=== PATIENT | female | born 1945 | race Caucasian/White ===

== ENCOUNTER 2025-01-17 18:50 | Emergency (ER) | payer OTHER ==
[2025-01-17] MEDS ORDERED: NA CHLORIDE 0.9% 1,000 ML ONE (19:13)
--- NOTE | 2025-01-17 19:58 | RAD REPORT ---
EXAMINATION: US bilateral LOWER EXTREMITY VENOUS DOPPLER CLINICAL INDICATION: Leg pain TECHNIQUE: Sonographic evaluation of the veins of the lower extremity bilaterally formed.Grayscale, c olor and spectral analysis performed on all vessels COMPARISON: No prior exam. FINDINGS: The common femoral, superficial femoral, greater saphenous, popliteal and posterior tibial veins bila terally are compressible and demonstrate augmentation. Doppler demonstrates good flow. IMPRESSION: No evidence of deep venous thrombosis involving either lower extremity
--- NOTE | 2025-01-17 20:00 | RAD REPORT ---
Procedure: Chest Single View HISTORY: Cough COMPARISON: 2023 FINDINGS: The lungs appear clear of acute infiltrate. Right lung calcified granulomas. No significant pleural effusion noted. The heart is normal size. IMPRESSION: No acute abnormality is displayed.
--- NOTE | 2025-01-17 20:01 | RAD REPORT ---
Exam:Foot Left 3 View CLINICAL HISTORY: Left foot pain FINDINGS: No fracture or dislocation seen Moderate narrowing first MTP joint with subchondral sclerosis and osteophytes. Lateral subluxation fi rst proximal phalanx. Mild arthritic changes involve DIP and PIP joints. Moderate plantar calcaneal spur
[2025-01-17 20:22] LABS: Absolute Basophils 0.1 K/uL (0-0.5); Absolute Eosinophils 0.5 K/uL (0-0.5); Absolute Lymphocytes (CBC) 2.4 K/uL (0.7-4.9); Absolute Monocytes 0.6 K/uL (0.1-1.3); Absolute Neutrophil 3.8 K/uL (1.8-8.0); Basophils % 0.7 % (0-1.3); Eosinophils % 7.2 % (0-4.4); Hematocrit 37.8 % (36.0-45.0); Hemoglobin 12.7 g/dL (12.0-15.0); Lymphocytes % 32.2 % (15.3-44.8); MCH 27.8 pg (27.0-35.0); MCHC 33.6 g/dL (32.0-36.0); MCV 82.5 fL (80-100); MPV 8.2 fL (7.6-11.3); Monocytes % 8.1 % (3.3-12.3); Neutrophils % 51.8 % (41.7-73.7); Nucleated Red Blood Cells % 0.2 % (0-0); Platelets 194 thou/uL (152-406); RBC Red Blood Cell Count 4.58 M/uL (3.86-4.86); Red Cell Distribution Width 14.2 % (12.1-15.2)
[2025-01-17] MEDS ORDERED: SMZ./TMP. 800/160 MG TABLET ONE (20:37)
[2025-01-17] MEDS ORDERED: FLUCONAZOLE 100 MG TAB ONE (20:37)
[2025-01-17] MEDS ORDERED: MUPIROCIN 2% OINT 22GM TUBE TOP ONE (20:42)
[2025-01-17 20:44] LABS: ALT/SGPT 16 U/L (13-56); AST/SGOT 14 U/L (15-37); Albumin 3.5 g/dL (3.4-5.0); Albumin/Globulin Ratio 0.9 (1.1-1.8); Alkaline Phosphatase 70 U/L (45-117); Anion Gap 10.5 mEq/L (5.0-15.0); BUN Blood Urea Nitrogen 16 mg/dL (7-18); Bicarbonate 25 mEq/L (21-32); Bilirubin Total 0.3 mg/dL (0.2-1.0); Globulin 4.1 g/dL (2.3-3.5); Glomerular Filtration Rate 74 ml/min (=/>90); Glucose Level 124 mg/dL (74-106); Lipase 43 U/L (13-75); Magnesium 2.2 mg/dL (1.6-2.4); NT PRO-BNP 112 pg/mL (<450); Potassium 3.5 mEq/L (3.5-5.1); Protein, Total 7.6 g/dL (6.4-8.2); Sodium Level 140 mEq/L (136-145); Troponin High Sensitivity 3.9 pg/mL (<58.9)
[2025-01-17 20:46] LABS: PT Prothrombin Time 11.7 SECONDS (10-13.0); Protime INR 1.03
[2025-01-17 20:48] LABS: Bilirubin Direct < 0.2 mg/dL (0-0.2); Bilirubin Indirect, Calculated 0.1 mg/dL (0.2-0.8)
--- NOTE | 2025-01-17 21:31 | ER ---
Nurse's Notes [facility] Name: Carmen Calderon Age: 79 yrs Sex: Female : 1945 Arrival Date: 01/17/2025 Time: 18:50 Bed 5 Private MD: Diagnosis: Cellulitis and acute lymphangitis of other parts of limb;Pain in left foot Presentation: 01/17 19:04 Coronavirus screen: Vaccine status: Patient reports receiving the 2nd dose of the covid kd3 vaccine. Ebola Screen: No symptoms or risks identified at this time. Initial Sepsis Screen: Does the patient meet any 2 criteria? No. Patient's initial sepsis screen is negative. Does the patient have a suspected source of infection? No. Patient's initial sepsis screen is negative. Risk Assessment: Do you want to hurt yourself or someone else? Patient reports no desire to harm self or others. 19:04 Method Of Arrival: Ambulatory kd3 19:05 Chief complaint: Patient states: I have had a foot fungus on my feet and within the kd3 past two days my foot has gotten so red and swollen. I am not diabetic. I have openings where my feet have started to crack and bleed and they are hot to the touch. Onset of symptoms was January 17, 2025. 19:07 Acuity: ABHIJEET 3 kd3 Triage Assessment: 19:07 General: Appears in no apparent distress. Behavior is calm, cooperative. Pain: kd3 Complains of pain in left foot. Neuro: Level of Consciousness is awake, alert, obeys commands, Oriented to person, place, time, situation. Historical: - PMHx: 19:07 Hypertensive disorder; kd3 - PSHx: 19:07 left hip surgery (December 2023); kd3 - Immunization history:: Adult Immunizations up to date. - Infectious Disease History:: Denies. - Social history:: Smoking status: Patient denies any tobacco usage or history of. - Family history:: not pertinent. Screenin:51 [facility] ED Fall Risk Assessment (Adult) History of falling in the last 3 months, ha1 including since admission No falls in past 3 months (0 pts) Confusion or Disorientation No (0 pts) Intoxicated or Sedated No (0 pts) Impaired Gait Yes (1 pt) Mobility Assist Device Used Yes (1 pt) Altered Elimination No (0 pt) Score/Fall Risk Level 3 or more points = High Risk Oriented to surroundings, Maintained a safe environment, Educated pt \T\ family on fall prevention, incl call for assistance when getting out of bed, Hourly rounding (assess needs \T\ fall precautionary measures) done. Abuse screen: Denies threats or abuse. Denies injuries from another. Nutritional screening: No deficits noted. Tuberculosis screening: No symptoms or risk factors identified. Assessment: 19:45 General: Appears comfortable, Behavior is calm, cooperative. Pain: Complains of pain in ha1 left foot Pain currently is 6 out of 10 on a pain scale. Quality of pain is described as aching, Pain began four weeks ago Aggravated by increased activity, weight bearing. Neuro: Level of Consciousness is awake, alert, obeys commands, Oriented to person, place, time, situation. Cardiovascular: Capillary refill < 3 seconds. Respiratory: Airway is patent Respiratory effort is even, unlabored, Respiratory pattern is regular, symmetrical. GI: No signs and/or symptoms were reported involving the gastrointestinal system. Abdomen is round non-distended. : No signs and/or symptoms were reported regarding the genitourinary system. Derm: Rash noted that is itchy, red, raised, on left foot Bruising that is bright red. Musculoskeletal: Circulation, motion, and sensation intact. 20:50 Reassessment: Patient and/or family updated on plan of care and expected duration. Pain ha1 level reassessed. Patient is alert, oriented x 3, equal unlabored respirations, skin warm/dry/pink. wound care completed. 21:45 Reassessment: Patient and/or family updated on plan of care and expected duration. Pain ha1 level reassessed. Patient is alert, oriented x 3, equal unlabored respirations, skin warm/dry/pink. Vital Signs: 19:04 Pulse 90; Resp 18; Temp 98.1(O); Pulse Ox 100% ; Weight 60.33 kg; Height 5 ft. 1 in. ; kd3 19:04 BP 145 / 75; kd3 19:50 BP 148 / 77; Pulse 81; Resp 17 S; Pulse Ox 100% on R/A; ha1 20:40 BP 143 / 75; Pulse 77; Resp 16 S; Pulse Ox 98% on R/A; ha1 21:45 BP 144 / 71; Pulse 78; Resp 18 S; Pulse Ox 98% on R/A; ha1 19:04 Body Mass Index 25.13 (60.33 kg, 154.94 cm) 3 ED Course: 18:53 Patient arrived in ED. mr 19:03 Ky Nagy MD is Attending Physician. rn 19:07 Triage completed. kd3 19:07 Arm band placed on left wrist. kd3 19:08 Patient has correct armband on for positive identification. Placed in gown. Bed in low ha1 position. Call light in reach. Side rails up X 1. Adult w/ patient. 19:08 Provided Education on: plan of care . ha1 19:16 Caitie Carbajal, ELISA is Primary Nurse. ha1 19:21 Attending Physician role handed off by Ky Nagy MD anjel 19:21 Cj Fierro MD is Attending Physician. anjel 19:32 US Extremity Venous W Compression Americo In Process Unspecified. EDMS 19:35 EKG done, by ED staff, reviewed by Cj Fierro MD. oe 19:44 Missed attempt(s): 22 gauge in left antecubital area. Bleeding controlled, band aid ha1 applied, catheter tip intact. 19:50 First set of blood cultures drawn by me. oe 19:56 XRAY Chest (1 view) In Process Unspecified. EDMS 19:56 Foot Left 3 View XRAY In Process Unspecified. EDMS 20:06 Second set of blood cultures drawn by me. oe 20:14 Inserted saline lock: 22 gauge in right wrist, using aseptic technique. Blood oe collected. Flushed with 10 mL NS. 20:19 Basic Metabolic Panel Sent. ha1 20:19 CBC with Diff Sent. ha1 20:19 LFT's Sent. ha1 20:19 Magnesium Sent. ha1 20:19 NT PRO-BNP Sent. ha1 20:19 PT-INR Sent. ha1 20:19 Troponin HS Sent. ha1 21:31 Ger George MD is Referral Physician. anejl 22:07 No provider procedures requiring assistance completed. IV discontinued, intact, ha1 bleeding controlled, No redness/swelling at site. Pressure dressing applied. Administered Medications: 20:50 Drug: Fluconazole PO 200 mg PO once {Note: took the other 100 mg at home .} Route: PO; ha1 21:09 Follow up: Response: No adverse reaction ha1 20:51 Drug: NS 0.9% IV 1000 ml IV at 100 ml/hr once; to be given as a bolus over 60 minutes ha1 Route: IV; Rate: 100 ml/hr; Site: right hand; 22:04 Follow up: Response: No adverse reaction; IV Status: Completed infusion ha1 20:51 Drug: Trimethoprim-Sulfamethoxazole PO (160 mg-800 mg (DS) 1 tablet PO once Route: PO; ha1 21:09 Follow up: Response: No adverse reaction ha1 21:08 Drug: Centany Ointment 2 % 1 application Topical once {Note: right foot .} Route: ha1 Topical; Site: wound; 22:04 Follow up: Response: No adverse reaction ha1 Medication: 19:52 VIS not applicable for this client. ha1 Outcome: 21:31 Discharge ordered by . [facility] 22:07 Discharged to home via wheelchair, with family, ha1 22:07 Condition: stable 22:07 Discharge instructions given to patient, family, Instructed on discharge instructions, follow up and referral plans. medication usage, wound care, Demonstrated understanding of instructions, follow-up care, medications, Prescriptions given X 3, 22:08 Patient left the ED. ha1 Signatures: Dispatcher [employer] EDMS Cj Fierro MD MD cha Rivera, Mary, [facility] Angel mr Ky Nagy MD MD rn Espinosa, Orlando oe Doucette, Kyli RN RN kd3 aCitie Carbajal RN RN ha1 Corrections: (The following items were deleted from the chart) 19:07 19:05 Acuity: ABHIJEET 4 kd3 kd3 22:08 22:07 Discharged to home ambulatory, with family, ha1 ha1
--- NOTE | 2025-01-17 21:31 | EDPHYS ---
Physician Documentation [facility] Name: Carmen Calderon Age: 79 yrs Sex: Female : 1945 Arrival Date: 01/17/2025 Time: 18:50 Bed 5 Private MD: APOLLO Physician Cj Fierro HPI: 01/17 19:51 This 79 yrs old Female presents to ER via Ambulatory with complaints of Feet anjel Swelling. 19:51 left ffot red , sluffing and scaley. The patient presents with decreased range of anjel motion, pain, swelling, tenderness. The complaints affect the left foot. Modifying factors: The symptoms are alleviated by elevation of extremity, the symptoms are aggravated by movement, wearing shoes. Associated signs and symptoms: The patient has no apparent associated signs or symptoms. Historical: - PMHx: 19:07 Hypertensive disorder; kd3 - PSHx: 19:07 left hip surgery (December 2023); kd3 - Immunization history:: Adult Immunizations up to date. - Infectious Disease History:: Denies. - Social history:: Smoking status: Patient denies any tobacco usage or history of. - Family history:: not pertinent. ROS: 19:51 Constitutional: Negative for fever, chills, and weight loss, Eyes: Negative for injury, anjel pain, redness, and discharge, ENT: Negative for injury, pain, and discharge, Neck: Negative for injury, pain, and swelling, Cardiovascular: Negative for chest pain, palpitations, and edema, Respiratory: Negative for shortness of breath, cough, wheezing, and pleuritic chest pain, Abdomen/GI: Negative for abdominal pain, nausea, vomiting, diarrhea, and constipation, Back: Negative for injury and pain, : Negative for injury, bleeding, discharge, and swelling, Neuro: Negative for headache, weakness, numbness, tingling, and seizure, Psych: Negative for depression, anxiety, suicide ideation, homicidal ideation, and hallucinations, Allergy/Immunology: Negative for hives, rash, and allergies, Endocrine: Negative for neck swelling, polydipsia, polyuria, polyphagia, and marked weight changes, 19:51 MS/extremity: Positive for erythema, pain, rash, swelling, tenderness, Exam: 19:51 Constitutional: This is a well developed, well nourished patient who is awake, alert, anjel and in no acute distress. Head/Face: Normocephalic, atraumatic. Eyes: Pupils equal round and reactive to light, extra-ocular motions intact. Lids and lashes normal. Conjunctiva and sclera are non-icteric and not injected. Cornea within normal limits. Periorbital areas with no swelling, redness, or edema. ENT: Nares patent. No nasal discharge, no septal abnormalities noted. Tympanic membranes are normal and external auditory canals are clear. Oropharynx with no redness, swelling, or masses, exudates, or evidence of obstruction, uvula midline. Mucous membranes moist. Neck: Trachea midline, no thyromegaly or masses palpated, and no cervical lymphadenopathy. Supple, full range of motion without nuchal rigidity, or vertebral point tenderness. No Meningismus. Chest/axilla: Normal chest wall appearance and motion. Nontender with no deformity. No lesions are appreciated. Cardiovascular: Regular rate and rhythm with a normal S1 and S2. No gallops, murmurs, or rubs. Normal PMI, no JVD. No pulse deficits. Respiratory: Lungs have equal breath sounds bilaterally, clear to auscultation and percussion. No rales, rhonchi or wheezes noted. No increased work of breathing, no retractions or nasal flaring. Abdomen/GI: Soft, non-tender, with normal bowel sounds. No distension or tympany. No guarding or rebound. No evidence of tenderness throughout. Back: No spinal tenderness. No costovertebral tenderness. Full range of motion. Skin: Warm, dry with normal turgor. Normal color with no rashes, no lesions, and no evidence of cellulitis. MS/ Extremity: Pulses equal, no cyanosis. Neurovascular intact. Full, normal range of motion., bilateral aka Neuro: Awake and alert, GCS 15, oriented to person, place, time, and situation. Cranial nerves II-XII grossly intact. Motor strength 5/5 in all extremities. Sensory grossly intact. Cerebellar exam normal. Normal gait. Psych: Awake, alert, with orientation to person, place and time. Behavior, mood, and affect are within normal limits. 19:51 ECG was reviewed by the Attending Physician. 19:51 Skin: Appearance: Color: normal in color, Temperature: normal temperature, Moisture: normal moisture, petechiae, not noted, cellulitis, that is mild, that is moderate, induration, that is mild is noted, contact dermatitis, 20:26 ECG was reviewed by the Attending Physician. [facility] Vital Signs: 19:04 Pulse 90; Resp 18; Temp 98.1(O); Pulse Ox 100% ; Weight 60.33 kg; Height 5 ft. 1 in. ; kd3 19:04 BP 145 / 75; kd3 19:50 BP 148 / 77; Pulse 81; Resp 17 S; Pulse Ox 100% on R/A; ha1 20:40 BP 143 / 75; Pulse 77; Resp 16 S; Pulse Ox 98% on R/A; ha1 21:45 BP 144 / 71; Pulse 78; Resp 18 S; Pulse Ox 98% on R/A; ha1 19:04 Body Mass Index 25.13 (60.33 kg, 154.94 cm) kd3 MDM: 19:25 Medical Screening Exam initiated anjel 20:00 Differential Diagnosis sepsis. Differential diagnosis: sprain, arthritis, gout, anjel cellulitis. Data reviewed: vital signs, nurses notes, lab test result(s), radiologic studies, doppler, plain films. Consideration of Admission/Observation Escalation of care including admission/observation considered. I considered the following discharge prescriptions or medication management in the emergency department Medications were administered in the Emergency Department. See MAR. Independent interpretation of the following test(s) in the Emergency Department EKG: See my EKG interpretation above. 01/17 19: Order name: Basic Metabolic Panel; Complete Time: 21:30 01/17 19:06 Order name: CBC with Diff; Complete Time: 21:30 01/17 19:06 Order name: LFT's; Complete Time: 21:30 01/17 19:06 Order name: Magnesium; Complete Time: 21:30 01/17 19:06 Order name: NT PRO-BNP; Complete Time: 21:30 01/17 19:06 Order name: PT-INR; Complete Time: 20:49 01/17 19:06 Order name: Troponin HS; Complete Time: 21:30 01/17 19:06 Order name: Blood Culture Adult (2) 01/17 19:06 Order name: UA Rfx Gallito Cult if indicated 01/17 19:06 Order name: Lipase; Complete Time: 21:30 01/17 19:06 Order name: XRAY Chest (1 view); Complete Time: 20:49 rn 01/17 19:06 Order name: US Extremity Venous W Compression Americo; Complete Time: 20:49 rn 01/17 19:45 Order name: Foot Left 3 View XRAY; Complete Time: 20:49 [facility] 01/17 19:06 Order name: Cardiac monitoring; Complete Time: 19:44 rn 01/17 19:06 Order name: EKG - Nurse/Tech; Complete Time: :44 rn 01/17 19:06 Order name: IV Saline Lock; Complete Time: 20: rn 01/17 19:06 Order name: Labs collected and sent; Complete Time: 20: rn 01/17 19:06 Order name: O2 Per Protocol; Complete Time: :44 rn 01/17 19:06 Order name: O2 Sat Monitoring; Complete Time: :44 rn 01/17 20:00 Order name: Wound Care; Complete Time: 21:08 [facility] 01/17 22:04 Order name: Post-op Orthopedic Shoe; Complete Time: 22:04 ha1 EC:26 Rate is 82 beats/min. Rhythm is regular. QRS [place] is Normal. [place] interval is normal. QRS anjel interval is normal. QT interval is normal. No Q waves. T waves are Normal. No ST changes noted. Clinical impression: NSR w/ Non-specific ST/T Changes and No evidence of ischemia. Interpreted by me. Reviewed by me. Administered Medications: 20:50 Drug: Fluconazole PO 200 mg PO once {Note: took the other 100 mg at home .} Route: PO; ha1 21:09 Follow up: Response: No adverse reaction ha1 20:51 Drug: NS 0.9% IV 1000 ml IV at 100 ml/hr once; to be given as a bolus over 60 minutes ha1 Route: IV; Rate: 100 ml/hr; Site: right hand; 22:04 Follow up: Response: No adverse reaction; IV Status: Completed infusion 1 20:51 Drug: Trimethoprim-Sulfamethoxazole PO (160 mg-800 mg (DS) 1 tablet PO once Route: PO; ha1 21:09 Follow up: Response: No adverse reaction ha1 21:08 Drug: Centany Ointment 2 % 1 application Topical once {Note: right foot .} Route: ha1 Topical; Site: wound; 22:04 Follow up: Response: No adverse reaction ha1 Disposition Summary: 01/17/25 21:31 Discharge Ordered Notes: Location: Home [facility] Problem: new anjel Symptoms: have improved anjel Condition: Stable anjel Diagnosis - Cellulitis and acute lymphangitis of other parts of limb anjel - Pain in left foot anjel Followup: anjel - With: Private Physician - When: 2 - 3 days - Reason: Recheck today's complaints, Continuance of care, Re-evaluation by your physician Followup: anjel - With: Ger George MD - When: 2 - 3 days - Reason: Recheck today's complaints, Continuance of care, Re-evaluation by your physician Discharge Instructions: - Discharge Summary Sheet anjel - Cellulitis, Adult anjel - Wound Care, Adult anjel - Foot Pain [facility] Forms: - Medication Reconciliation Form [facility] - Antibiotic Education anjel - Prescription Opioid Use anjel - Patient Portal Instructions [facility] - Leadership Thank You Letter [facility] Prescriptions: - Centany 2 % Topical ointment - apply 1 application TOPICAL route 3 times per day; 45 Pack; Refills: 0, Product [facility] Selection Permitted - Fluconazole 200 mg Oral tablet - take 1 tablet ORAL route one time take 1 tab po every week; 3 tablet; Refills: anjel 0, Product Selection Permitted - Bactrim DS 800-160 mg Oral Tablet - take 1 tablet ORAL route every 12 hours for 10 days; 20 tablet; Refills: 0, anjel Product Selection Permitted Signatures: Dispatcher [employer] Cj Banks MD MD cha Nieto, Roman, MD MD rn Doucette, Kyli RN RN kd3 Caitie Carbajal RN RN ha1 Corrections: (The following items were deleted from the chart) 19:07 19:07 BASIC METABOLIC PANEL+C.LAB.BRZ ordered. EDMS EDMS 19:07 19:07 CBC+H.LAB.BRZ ordered. EDMS EDMS 19:07 19:07 HEPATIC FUNCTION+C.LAB.BRZ ordered. EDMS EDMS 19:07 19:07 MAGNESIUM+C.LAB.BRZ ordered. EDMS EDMS 19:07 19:07 PROBNP+C.LAB.BRZ ordered. EDMS EDMS 19:07 19:07 PROTIME (+INR)+COAG.LAB.BRZ ordered. EDMS EDMS 19:07 19:07 Troponin High Sensitivity+C.LAB.BRZ ordered. EDMS EDMS : 19:07 BLOOD CULTURE*+BA.LAB.BRZ ordered. EDMS EDMS : 19:07 UA Rfx Gallito Cult if indicated+U.LAB.BRZ ordered. EDMS EDMS : 19:07 LIPASE+C.LAB.BRZ ordered. EDMS EDMS : 19:07 Chest Single View+RAD.RAD.BRZ ordered. EDMS EDMS 19:07 Extrem Venous W Compression Americo+US.RAD.BRZ ordered. EDMS EDMS
[2025-01-17 21:38] LABS: Specific Gravity 1.008 (1.005-1.030); Urine Bilirubin NEGATIVE (Negative); Urine Blood Negative (Negative); Urine Clarity Clear (Clear); Urine Color Colorless (Yellow); Urine Glucose NEGATIVE (Negative); Urine Ketones NEGATIVE (Negative); Urine Microscopic Reflex YN NO UMIC; Urine Nitrite NEGATIVE (Negative); Urine Protein NEGATIVE (Negative); Urine Urobilinogen Normal (Normal); Urine pH 5.5 (5.0-7.0)
[2025-01-17 22:16] VITALS: TEMP 98.1
[2025-01-17 22:33] VITALS: O2SAT 98
[2025-01-17 22:34] VITALS: BP 144/71
--- NOTE | 2025-01-19 12:01 | EKG ---
Test Date: 2025-01-17 Test Time: 19:28:54 Cut Plug Packer: ANH MEASUREMENT RESULTS: Intervals: Rate: 82 [place]: 188 QRSD: 108 QT: 400 QTc: 467 [place]: P: 50 [place]: 188 QRS: -47 T: 33 INTERPRETIVE STATEMENTS: Normal sinus rhythm Left axis deviation Possible Anterior infarct, age undetermined Abnormal ECG No previous ECG available for comparison Electronically Signed On 01-19-25 11:57:08 CDT by Adeel Menjivar
== END 2025-01-17 22:08 | disposition home or self-care (01) ==
LOC: ER 18:50
DX: L03.116 Cellulitis of left lower limb (principal); L03.126 Acute lymphangitis of left lower limb
CPT/HCPCS: 93005; 87040 ×2; 85025; 80048; 36415; 83735; 85610; 80076; 81003; 84484; 83690; 83880; 71045; 73630; 93970; 96360; 99284; J7030